=== PATIENT | female | born 1940 | race Caucasian/White ===

== ENCOUNTER → 2017-01-04 | Outpatient (CLI) | payer MEDICARE, OTHER ==
[~2017-01-04] MED LIST: CALC1TAB84 PO; ESTR0.5T PO; LEVO112T4 PO; LEVO125T5 PO; LISI-167 PO; MULT-658 PO
== END | disposition home or self-care (01) ==
LOC: RAD 13:29
PROVIDERS: ATTEND Neurological Surgery
DX: M51.36 Other intervertebral disc degeneration, lumbar region (principal); M43.16 Spondylolisthesis, lumbar region; M47.896 Other spondylosis, lumbar region; M41.85 Other forms of scoliosis, thoracolumbar region
CPT/HCPCS: 72082; 72110